=== PATIENT | male | born 1960 | race Caucasian/White ===

== ENCOUNTER 2016-11-27 17:01 | Inpatient (IN) | payer BC, OTHER ==
[~2016-11-27] VITALS: Ht 177.8 cm; Wt 95.2 kg
[~2016-11-27 17:01] MED LIST: ALDACTAZIDE 251 EACH; ASPIRIN81 M1 PO; ASPIRIN81 M2 PO; CRESTOR20 MG PO; MEDROL4 MG PO; MORPHINE SULFAT60 MG PO; NEXIUM40 MG PO; PERCOCET 10/1 TABLET PO; SILVADENE20 GM TP; TRICOR145 MG PO; VALIUM5 MG PO
[2016-11-27 17:56] LABS: MEAN PLAT.VOLUME 9.3 uM^3 (9.0-12.4); PLATELET COUNT 281 K/uL (156-360)
[2016-11-27 18:05] LABS: HEMATOCRIT 46.7 % (38.0-50.0); MCH 29.3 PG (29.0-34.0); MCHC 35.1 G/DL (30.0-36.0); MCV 83.4 FL (86-99); RBC DIS.WIDTH-CV 12.8 % (11.8-14.6); RBC DIS.WIDTH-SD 38.3 % (39-53); WHITE BLOOD COUNT 31.9 K/uL (4.1-10.2)
[2016-11-27 18:07] LABS: CHLORIDE 94 mEq/L (99-109); POTASSIUM 3.6 mEq/L (3.7-5.4); SODIUM 131 mEq/L (136-147)
[2016-11-27 18:09] LABS: GLUCOSE 267 mg/dL (70-99)
[2016-11-27 18:10] LABS: ANION GAP 13 MEQ/L (2-14)
[2016-11-27 18:11] LABS: TOTAL BILIRUBIN 3.8 mg/dL (0.0-1.0)
[2016-11-27 18:12] LABS: ALKALINE PHOSPHATASE 61 IU/L (3-129)
[2016-11-27 18:13] LABS: GFR ESTIMATE (CALCULATED) > 59 mL/min/
[2016-11-27 18:14] LABS: UREA NITROGEN (BUN) 12 mg/dL (9-23)
[2016-11-27 18:16] LABS: LIPASE 5 U/L (1.0-51.0)
[2016-11-27] MEDS ORDERED: ESOMEPRAZOLE MA40 MG PO (18:29)
[2016-11-27] MEDS ORDERED: TAMSULOSIN HCL0.4 MG PO (18:30)
[2016-11-27 19:56] LABS: ADD MIUA? YES; BILIRUBIN NEGATIVE; BLOOD SMALL; COLOR YELLOW ((YELLOW)); GLUCOSE (STRIP) >=500; KETONES 20; LEUKOCYTES NEGATIVE; NITRITE NEGATIVE; PROTEIN (STRIP) NEGATIVE; SPECIFIC GRAVITY 1.012 (1.000-1.030); UROBILINOGEN 0.2 MG/DL (0.2-1.0)
[2016-11-27 20:07] LABS: INTER. NORMALIZED RATIO 1.2; PTT 32.8 (25-32)
[2016-11-27 20:18] LABS: BACTERIA NONE SEEN /HPF; EPITHELIAL CELLS NONE SEEN /HPF; MUCUS TRACE /LPF; RED BLOOD CELLS NONE SEEN /HPF (0-5); UCUL ADDED? NO; WHITE BLOOD CELLS 0-5 /HPF (0-5)
[2016-11-27] MEDS ORDERED: CRESTOR40 MG PO (21:24)
[2016-11-27] MEDS ORDERED: ALDACTAZIDE 251 EACH PO (21:25)
[2016-11-27] MEDS ORDERED: ROXICODONE15 MG PO (21:25)
[2016-11-27] MEDS ORDERED: PROBIOTIC1 EAC1 PO (21:27)
[2016-11-27] MEDS ORDERED: LO-DOSE ASPIRIN81 M2 PO (21:27)
[2016-11-27] MEDS ORDERED: MAGNESIUM400 M1 PO (21:27)
[2016-11-27] MEDS ORDERED: VITAMIN D31000 UNI2 PO (21:27)
[2016-11-27] MEDS ORDERED: DRONABINOL10 MG PO (21:27)
[2016-11-27 22:10] VITALS: BP 175/81
[2016-11-27 23:36] VITALS: BP 148/65
[2016-11-28 04:45] VITALS: BP 154/67
[2016-11-28 05:55] LABS: ALKALINE PHOSPHATASE 46 IU/L (3-129); ANION GAP 11 MEQ/L (2-14); CHLORIDE 99 MEQ/L (99-109); GFR ESTIMATE (CALCULATED) > 59 mL/min/; GLUCOSE 235 mg/dL (70-99); POTASSIUM 3.4 MEQ/L (3.7-5.4); SAMPLE HEMOLYSIS CHECK 0; SAMPLE ICTERIC CHECK 0; SAMPLE LIPEMIA CHECK 0; SODIUM 135 MEQ/L (136-147); TOTAL BILIRUBIN 2.8 MG/DL (0.0-1.0); UREA NITROGEN (BUN) 9 mg/dL (9-23)
[2016-11-28 06:25] LABS: HEMATOCRIT 38.4 % (38.0-50.0); MCH 29.5 PG (29.0-34.0); MCHC 34.9 G/DL (30.0-36.0); MCV 84.4 FL (86-99); MEAN PLAT.VOLUME 9.7 uM^3 (9.0-12.4); PLATELET COUNT 204 K/uL (156-360); RBC DIS.WIDTH-CV 12.7 % (11.8-14.6); RBC DIS.WIDTH-SD 39.1 % (39-53); RED BLOOD COUNT 4.55 M/uL (4.00-5.50); WHITE BLOOD COUNT 27.7 K/uL (4.1-10.2)
[2016-11-28 08:30] VITALS: BP 139/70
[2016-11-28 14:40] VITALS: BP 167/76
[2016-11-28 20:41] VITALS: BP 134/60
[2016-11-29] VITALS (7 sets, daily range): BP systolic 87–190; BP diastolic 52–75
[2016-11-29 07:20] LABS: HEMATOCRIT 32.2 % (38.0-50.0); MCH 29.4 PG (29.0-34.0); MCHC 33.9 G/DL (30.0-36.0); MCV 86.8 FL (86-99); MEAN PLAT.VOLUME 10.1 uM^3 (9.0-12.4); PLATELET COUNT 165 K/uL (156-360); RBC DIS.WIDTH-CV 12.8 % (11.8-14.6); RBC DIS.WIDTH-SD 40.8 % (39-53); RED BLOOD COUNT 3.71 M/uL (4.00-5.50); WHITE BLOOD COUNT 15.3 K/uL (4.1-10.2)
[2016-11-29 07:25] LABS: ALKALINE PHOSPHATASE 45 IU/L (3-129); ANION GAP 8 MEQ/L (2-14); CHLORIDE 107 MEQ/L (99-109); GFR ESTIMATE (CALCULATED) > 59 mL/min/; GLUCOSE 164 mg/dL (70-99); POTASSIUM 3.7 MEQ/L (3.7-5.4); SAMPLE HEMOLYSIS CHECK 0; SAMPLE ICTERIC CHECK 0; SAMPLE LIPEMIA CHECK 0; SODIUM 141 MEQ/L (136-147); UREA NITROGEN (BUN) 14 mg/dL (9-23)
[2016-11-29 07:29] LABS: TOTAL BILIRUBIN 1.4 MG/DL (0.0-1.0)
[2016-11-30 00:33] VITALS: BP 107/52
[2016-11-30 05:35] LABS: HEMATOCRIT 28.4 % (38.0-50.0); MCH 30.7 PG (29.0-34.0); MCHC 34.9 G/DL (30.0-36.0); MCV 87.9 FL (86-99); MEAN PLAT.VOLUME 10.6 uM^3 (9.0-12.4); PLATELET COUNT 156 K/uL (156-360); RBC DIS.WIDTH-CV 13.2 % (11.8-14.6); RBC DIS.WIDTH-SD 42.5 % (39-53); RED BLOOD COUNT 3.23 M/uL (4.00-5.50); WHITE BLOOD COUNT 8.1 K/uL (4.1-10.2)
[2016-11-30 05:59] LABS: ALKALINE PHOSPHATASE 45 IU/L (3-129); ANION GAP 7 MEQ/L (2-14); CHLORIDE 110 MEQ/L (99-109); GFR ESTIMATE (CALCULATED) > 59 mL/min/; GLUCOSE 122 mg/dL (70-99); POTASSIUM 3.7 MEQ/L (3.7-5.4); SAMPLE HEMOLYSIS CHECK 0; SAMPLE ICTERIC CHECK 0; SAMPLE LIPEMIA CHECK 0; SODIUM 142 MEQ/L (136-147); TOTAL BILIRUBIN 0.6 MG/DL (0.0-1.0); UREA NITROGEN (BUN) 19 mg/dL (9-23)
[2016-11-30 08:00] VITALS: BP 120/58
[2016-11-30] MEDS ORDERED: BACTRIM,SEPT1 TABLET PO (14:45)
[2016-11-30] MEDS ORDERED: FLAGYL500 MG PO (14:45)
== END 2016-11-30 16:03 | disposition home or self-care (01) | DRG 418 ==
LOC: EME 17:01 → 3EAST 20:44 → EDOF 20:44 → 3EAST 21:57
PROVIDERS: Nurse Practitioner Family; Surgery
DX: K80.12 Calculus of gallbladder with acute and chronic cholecystitis without obstruction (principal); R17 Unspecified jaundice; I10 Essential (primary) hypertension; Z87.891 Personal history of nicotine dependence; I70.0 Atherosclerosis of aorta; E78.5 Hyperlipidemia, unspecified; G89.29 Other chronic pain; M17.0 Bilateral primary osteoarthritis of knee; E11.9 Type 2 diabetes mellitus without complications; A04.4 Other intestinal Escherichia coli infections
CPT/HCPCS: 74176; 74300; 76705; 80053; 81003; 83605; 83690; 85027; 85610; 85730; 87040; 87070; 87075; 87076; 87077; 87186; 87205; 88304; 93005; 99281; 99285; J1100; J1170; J1650; J1885; J2250; J2270; J2405; J2543; J3010; J3480; J7030; J7050